=== PATIENT | female | born 1950 | race Two or more races ===

== ENCOUNTER 2025-04-02 00:05 | Emergency (ER) | payer OTHER ==
[~2025-04-02] VITALS: Ht 157.5 cm; Wt 108.9 kg
[2025-04-02] MEDS ORDERED: ACET500T58 PO (00:49)
--- NOTE | 2025-04-02 00:50 | ED.PDOC ---
Musculoskeletal HPI Comments 74-year-old female presents to ER with complaints of fall injury x1 hour. Patient presents via EMS, reporting that she sustained a mechanical trip and fall while using her walker in the restroom and injured both her ankles. Notes she did hit her right lower lip against her walker upon falling and sustained abrasion to right lower lip, denying head injury/LOC and denies any other reported injuries. Patient was given Tylenol by EMS with good relief and rates her current bilateral ankle pain a 6/10. Denies hip pain, numbness/tingling, bilateral foot pain, bilateral knee pain or any further symptoms/complaints Chief Complaint: Fall Injury Time Seen by MD: 00:24 Primary Care Provider: UNKNOWN Reviewed Notes: Nurses Notes, [employer] Specialist Notes, Medications, Allergies Allergies: Coded Allergies: Penicillins (Verified Allergy, Unknown, 04/02/25) Home Meds Active Scripts Acetaminophen (Acetaminophen) 500 Mg Tab, 500 MG PO Q4HPRN, #30 TAB 0 Refills Prov:JOSETTE SUAREZ 04/02/25 Information Source: Patient Mode of Arrival: EMS Past Medical History PAST MEDICAL HISTORY: DM, High Lipids, HTN Past Medical History (Other): Arthritis left knee Surgical History: Denies all surgeries SOFTWARE TECHNICAL LEAD History: No Pertinent SOFTWARE TECHNICAL LEAD History Family History Family History: Unknown Social History Smoker: Non-Smoker Alcohol: Denies ETOH Use Drugs: Denies Drug Use Lives In: Home Constitutional: denies: chills, diaphoresis, fatigue, fever, malaise, sweats, weakness, others EENTM: reports: others (As stated in HPI) Respiratory: denies: cough, hemoptysis, orthopnea, SOB at rest, shortness of breath, SOB with excertion, stridor, wheezing, others Cardiovascular: denies: chest pain, dizzy spells, diaphoresis, Dyspnea on exertion, edema, irregular heart beat, left arm pain, lightheadedness, palpitations, PND, syncope, others Gastrointestinal: denies: abdomen distended, abdominal pain, blood streaked bowels, constipated, diarrhea, dysphagia, difficulty swallowing, hematemesis, melena, nausea, poor appetite, poor fluid intake, rectal bleeding, rectal pain, vomiting, others Genitourinary: denies: abnormal vagina bleeding, burning, dyspareunia, dysuria, flank pain, frequency, hematuria, incontinence, pain, , vagina discharge, urgency, others Neurological: denies: dizziness, fainting, headache, left sided numbness, left sided weakness, numbness, paresthesia, pre-existing deficit, right sided numbness, right sided weakness, seizure, speech problems, tingling, tremors, weakness, others Musculoskeletal: reports: others (As stated in HPI) Integumetry: reports: others (As stated in HPI) Allergic/Immunocompromised: denies: Difficulty Healing, Frequent Infections, Hives, Itching, others Hematologic/Lymphatic: denies: anemia, blood clots, easy bleeding, easy bruising, swollen glands, others Endocrine: denies: excessive hunger, excessive sweating, excessive thirst, excessive urination, flushing, intolerance to cold, intolerance to heat, unexplained weight gain, unexplained weight loss, others Psychiatric: denies: anxiety, bipolar disorder, depression, hopeless, panic disorder, schizophrenia, sleepless, suicidal, others Physical Exam General Appearance: No Apparent Distress, Obese HEENT: Normal ENT Inspection, PERRL/EOMI, Pharynx Normal, TMs Normal, Other (Small 1 cm abrasion noted to right lower lip with bleeding controlled, no laceration/further skin changes noted) Neck: Full Range of Motion, Non-Tender, Normal Respiratory: Chest Non-Tender, Lungs Clear, No Accessory Muscle Use, No Respiratory Distress, Normal Breath Sounds Cardiovascular: No Murmur, No Gallop, Regular Rate/Rhythm Breast Exam: Deferred Gastrointestinal: NOT DONE Genitalia: Deferred Pelvic: Deferred Rectal: Deferred Extremities: Normal capillary refill, Normal range of motion Musculoskeletal : Extremity Location: Ankle (TTP to bilateral lateral malleolus noted without any swelling/skin changes appreciated. Gait slowed with use of assistance. No other TTP to bilateral lower extremity noted. 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 Was a procedure done?: No Sedation Sedation?: No Differential Diagnosis EXT Differential Diagnosis: Fracture, Dislocation, Neurovascular injury, Other (closed head injury) X-Ray, Labs, Meds, VS Vital Signs Date Time Temp Pulse Resp B/P (MAP) Pulse Ox O2 Delivery O2 Flow Rate FiO2 04/02/25 00:16 98.1 89 18 14/86 96 98.1 PATIENT: ROB WELDONCCT: [id number]: [id number] : 1950 LOC: ER ROOM / BED: / AGE / SEX: 74 / F ADM STATUS: REG ER SERVICE ORDERING PHYSICIAN: JOSETTE SUAREZ PROCEDURE(s): RANKL - R ANKLE 3 VIEW REASON: right ankle pain ORDER NUMBER(s): [id number], ACCESSION NUMBER(s): [id number] CLINICAL INDICATION: right ankle pain TECHNIQUE: XYXY R ANKLE 3 VIEW Comparison: None FINDINGS/IMPRESSION: : There is no evidence of acute fracture or dislocation. Moderate size plantar calcaneal spur. Soft tissues are unremarkable. ATED BY: YVAN FUNK MD DICTATED DATE/TIME: 04/02/25148 SIGNED BY: YVAN FUNK MD SIGNED DATE/TIME: 04/02/25148 CC: PATIENT: BINU WELDON ACCT: [id number] UNIT: [id number] : 1950 LOC: ER ROOM / BED: / AGE / SEX: 74 / F ADM STATUS: REG ER SERVICE ORDERING PHYSICIAN: JOSETTE SUAREZ PROCEDURE(s): LANKL - L ANKLE 3 VIEW REASON: left ankle pain ORDER NUMBER(s): [id number], ACCESSION NUMBER(s): [id number] CLINICAL INDICATION: left ankle pain TECHNIQUE: XY L ANKLE 3 VIEW Comparison: XY R ANKLE 3 VIEW on DOS: 04/02/25 FINDINGS/IMPRESSION: : There is no evidence of acute fracture or dislocation. Moderate hallux valgus. Plantar and retrocalcaneal enthesopathy. Soft tissues are unremarkable. ATED BY: PATO SANTIAGO MD DICTATED DATE/TIME: 04/02/25156 SIGNED BY: PATO SANTIAGO MD SIGNED DATE/TIME: 04/02/25156 CC: Bilateral ankle x-rays reviewed Patient neurovascularly intact and in no distress during ER visit/prior to discharge Advised on elevation and alternate ice on/off as needed for pain/swelling Advised on continued use of walker at all times Advised to follow up with PCP and orthopedics in 1-2 days Patient verbalized understanding and agreeable with current plan of care Advised to return to ER immediately if symptoms worsen Images Reviewed?: Images reviewed and evaluated by me Time of 1ST Reevaluation: 00:24 Reevaluation 1ST: N/A Patient Education/Counseling: Diagnosis, Treatment, Prognosis, Need For Follow Up Family Education/Counseling: No Family Present Departure 1 Departure Time of Disposition: 00:48 Impression: Primary Impression: Left ankle sprain Qualified Codes: S93.402A - Sprain of unspecified ligament of left ankle, initial encounter Additional Impression: Right ankle sprain Qualified Codes: S93.401A - Sprain of unspecified ligament of right ankle, initial encounter Disposition: HOME / SELF CARE / HOMELESS Condition: Stable e-Prescriptions Acetaminophen (Acetaminophen) 500 Mg Tab 500 MG PO Q4HPRN, #30 TAB 0 Refills Prov: JOSETTE SUAREZ 04/02/25 Discharged With: Significant Other Critical Care Note Critical Care Time?: No Stability Stability form required: No Heart Score Heart Score: Heart Score Response (Comments) Value History N/A 0 EKG N/A 0 Age N/A 0 Risk Factors N/A 0 Troponin N/A 0 Total 0 JOSETTE SUAREZ Apr 02, 2025 00:50
--- NOTE | 2025-04-02 01:51 | DVH ---
CLINICAL INDICATION: right ankle pain TECHNIQUE: XYXY R ANKLE 3 VIEW Comparison: None FINDINGS/IMPRESSION: : There is no evidence of acute fracture or dislocation. Moderate size plantar calcaneal spur. Soft tissues are unremarkable.
--- NOTE | 2025-04-02 02:00 | DVH ---
CLINICAL INDICATION: left ankle pain TECHNIQUE: XY L ANKLE 3 VIEW Comparison: XY R ANKLE 3 VIEW on DOS: 04/02/25 FINDINGS/IMPRESSION: : There is no evidence of acute fracture or dislocation. Moderate hallux valgus. Plantar and retrocalcaneal enthesopathy. Soft tissues are unremarkable.
[2025-04-02 04:00] VITALS: BP 138/77; PULSE 86; RESP 16; TEMP 98; O2SAT 99
== END 2025-04-02 05:53 | disposition home or self-care (01) ==
LOC: EDBD 00:05 → ER 00:05
DX: S93.401A Sprain of unspecified ligament of right ankle, initial encounter (principal); S93.402A Sprain of unspecified ligament of left ankle, initial encounter; S00.511A Abrasion of lip, initial encounter; I10 Essential (primary) hypertension; E11.9 Type 2 diabetes mellitus without complications; E78.5 Hyperlipidemia, unspecified; M17.12 Unilateral primary osteoarthritis, left knee; Z88.0 Allergy status to penicillin; W01.0XXA Fall on same level from slipping, tripping and stumbling without subsequent striking against object, initial encounter; Y93.89 Activity, other specified; Y92.89 Other specified places as the place of occurrence of the external cause; Y99.8 Other external cause status
CPT/HCPCS: 73610